=== PATIENT | female | born 1995 | race African-American/Black ===

== ENCOUNTER 2017-12-11 10:00 | Inpatient (IN) | payer OTHER ==
--- NOTE | 2017-12-10 20:44 | PDOC.LDHP ---
Labor and Delivery H&P Chief complaint: scheduled section HPI: 22 yo @ 39w0d by LMP c/w 12 week sono who presented for late transfer to . Pt has had benign anetpartum care besides anemia. Current gestational age (weeks): 39 Due date: 12/18/17 Dating criteria: last menstrual period Grav: 2 Para: 1 OB History Details: Term 2014 [id number] Current complications: none Abnormal US findings: No (however, anatomy sono report not available ) Past Medical History: Anemia, Asthma Current medications: none Previous surgical history: none Allergies/Adverse Reactions: Allergies Allergy/AdvReac Type Severity Reaction Status Date / Time No Known Allergies Allergy Verified 12/11/17 10:47 Social history: none - Physical Exam Vital signs reviewed and normal: yes General: NAD Heart: RRR Lungs: nonlabored breathing Abdomen: gravid Extremeties: no edema FHT: category 1 (130s, mod jose guadalupe, +accels, no decels) [place] contractions every: irritabilty - OB Labs Blood type: B RH: positive Antibody Screen: negative HIV: negative RPR: negative HEPSAg: negative 1 hour GCT: negative GBS: negative Urine drug screen: negative Rubella: immune Additional Labs: Quad screen negative - Assessment 39w0d IUP Breech presentation - Plan Plan: to OR for section, informed consent obtained, anesthesia consult for pain management -: Patient has been counseled on options of ECV vs PLTCS. All R/B/A/I for each reviewed. Pt desires PLTCS. TO OR for PLTCS.
[2017-12-11 10:58] VITALS: BMI 39.1
[2017-12-11] MEDS: Lactated Ringer's 1,000 ML IV SCH ×2 (11:03→22:41)
[2017-12-11] MEDS ORDERED: CEFAZOLIN/Water 2 GM/20 ML SYRINGE SLOW IVP SCH (11:06)
[2017-12-11] MEDS ORDERED: Bicitra 30 ML UDCUP PO SCH (11:06)
[2017-12-11] MEDS ORDERED: Acetaminophen 500 MG TAB PO PRN (11:06)
[2017-12-11] MEDS ORDERED: Ondansetron HCl/PF 4 MG/2 ML Vial IVP PRN ×3 (11:06→12:08)
[2017-12-11] MEDS ORDERED: Promethazine HCl 25 MG/ML VIAL IM PRN ×2 (11:06→12:08)
[2017-12-11 11:21] LABS: Hemoglobin 12.3 g/dL (12.0-16.0); Mean Corpuscular HGB CONC 33.9 g/dL (32.0-36.0); Mean Corpuscular Hemoglobin 31.2 pg (27.0-31.0); Mean Corpuscular Volume 92.1 fl (81.0-99.0); Mean Platelet Volume 9.3 fL (7.4-10.4); Platelet Count 170 thou/uL (130-400); RBC Distribution Width 12.7 % (11.5-14.5); Red Blood Cell (RBC) Count 3.95 mill/uL (4.20-5.40); White Blood Cell (WBC) Count 4.6 thou/uL (4.8-10.8)
--- NOTE | 2017-12-11 12:01 | CON ---
DATE OF CONSULTATION: 12/11/2017 HISTORY OF PRESENT ILLNESS: Ms. Ravi is a 22-year-old black G2, P1-0-0-1, currently at term, who Dr. Ferrari has asked for me to do a bedside ultrasound on. She is set to have a at noon and Dr. Ferrari is requesting information on presentation and placentation. On exam, her abdomen is soft, nontender and gravid consistent with a term . Bedside ultrasound reveals a naina breech presentation with the head in the patient's right upper quadrant. Adequate amniotic fluid is seen. I see no placenta across the lower uterine segment and although the placenta is difficult to see on bedside ultrasound, it appears that it is primarily posterior in its position. This information was conveyed to Dr. Ferrari by phone and the plan at this time is to proceed with section as planned. [place]
[2017-12-11] MEDS ORDERED: Eucerin (Mineral Oil/Petrolatum,White) 30 gm Jar TOP PRN (12:08)
[2017-12-11] MEDS ORDERED: Naloxone HCl 0.4 mg/ml Vial IV PRN (12:08)
[2017-12-11] MEDS ORDERED: Meperidine HCl/PF 25 MG/ML VIAL SLOW IVP PRN (12:08)
[2017-12-11] MEDS ORDERED: Naloxone HCl 0.4 mg/ml Vial IVP PRN ×2 (12:08)
[2017-12-11] MEDS ORDERED: HYDROmorphone 2 MG/ML VIAL SLOW IVP PRN (12:08)
[2017-12-11] MEDS ORDERED: Promethazine HCl 25 MG SUPP PR PRN (12:08)
[2017-12-11] MEDS ORDERED: Oxytocin 10 UNITS/ML VIAL ONE (12:12)
[2017-12-11] MEDS ORDERED: Lidocaine 1% PF 5 ML VIAL ONE (12:12)
[2017-12-11] MEDS ORDERED: Bupivacaine 0.75% W/DEXTROSE 8.25% 2 ML AMP ONE (12:12)
[2017-12-11] MEDS ORDERED: Morphine PF 1 MG/ML SYR ONE (12:12)
[2017-12-11] MEDS ORDERED: ePHEDrine/0.9% NaCl/PF SYRINGE 50 mg/10 ml ONE ×2 (12:12→16:14)
[2017-12-11] MEDS ORDERED: Ketorolac Tromethamine 30 MG/ML VIAL IVP SCH (12:15)
[2017-12-11] MEDS ORDERED: Communication Order-Pharmacy FS SCH (12:15)
--- NOTE | 2017-12-11 13:37 | PDOC.OPDEL ---
OB Operative/Delivery Note Delivery Dr/Surgeon: Татьяна Ferrari DO Assist: Coco Carrillo MD Pre-Delivery Diagnosis: scheduled section Procedure/Post Delivery Dx: primary low transverse CS Weeks gestation: 39 Anesthesia: spinal - Findings A Sex: male - 1 min: 8 - 5 min: 9 - Additional Findings/Plan Placenta delivered: manual removal findings: low transverse hysterotomy without extension, normal uterus, normal tubes, normal ovaries Estimated blood loss: 600 CC Compilations/Other Findings: Infant in naina breech presentation Terminal meconium Post delivery plan: routine recovery
[2017-12-11] MEDS ORDERED: LR / Pitocin 40 units/1000 ml 1,000 ML ONE (13:51)
--- NOTE | 2017-12-11 14:37 | OP ---
DATE OF PROCEDURE: 12/11/2017 PREOPERATIVE DIAGNOSES: 1. A 39-week 0 day intrauterine . 2. malpresentation in naina breech position. POSTOPERATIVE DIAGNOSES: 1. A 39-week 0 day intrauterine . 2. malpresentation in naina breech position. PROCEDURE: Primary low transverse section. SURGEON: Татьяна Ferrari D.O. LEAD RECREATION ASSISTANT: Jayleen Carrillo M.D. COMPLICATIONS: None. ESTIMATED BLOOD LOSS: 600 mL. IV FLUIDS: 1000 mL of crystalloid. FINDINGS: Normal appearing uterus, fallopian tubes and ovaries bilaterally. Terminal meconium noted. A viable male in naina breech presentation, Apgars 8 and 9. INDICATIONS FOR THE PROCEDURE: Ms. Gallito Ravi is a 22-year-old G2, P1 at 39 weeks and 0 days by LMP, consistent with a 12 week sonogram who was transferred to [facility] and with her first evaluation on 12/05/2017. The fetus was noted to be in naina breech presentation. The patient was counseled on option of external cephalic version versus primary delivery and elected to have a primary delivery. PROCEDURE IN DETAIL: The patient was brought to the operating room. Spinal anesthesia was placed and she was placed in supine position with a leftward tilt. A White catheter was placed. She was prepped and draped in sterile fashion. Ancef was given preoperatively for prophylaxis. An official timeout was performed. A Pfannenstiel incision skin incision was made using the scalpel and carried down to underlying fascial layer. The fascia was incised in the midline, extended bilaterally using Carvajal scissors. The superior aspect of the fascia was grasped with Richa clamp and dissected free from underlying rectus abdominis muscles. The same was performed to the inferior aspect of the fascial incision. The peritoneum was entered in bluntly. Peritoneal incision was extended using blunt and sharp dissection. An Musa O retractor was placed into the abdomen. A low transverse hysterotomy was made using the scalpel, this was extended using blunt dissection. The infant was delivered in naina breech presentation without difficulty. Infant's cord was clamped and cut. was handed to awaiting NICU team. Cord blood was obtained. The placenta was delivered manually intact. The uterus was cleared of all clot and debris. The hysterotomy was closed in a running locking fashion using #1 Monocryl. An imbrication layer was also performed. Hysterotomy site was hemostatic after closure. The pelvis was irrigated and cleared of all clot and debris. The adnexa was evaluated and was normal in appearance. The Musa O retractor was removed from the abdomen. The peritoneum was closed in a running fashion. The rectus abdominis muscles were evaluated hemostatic. The fascia was closed in a running fashion using 0 PDS. Subcutaneous layer was copiously irrigated and hemostatic with the use of the Bovie. The subcutaneous layer was closed using 3-0 Vicryl. The skin was closed using 4-0 Monocryl and Dermabond. There was a small skin tag and left aspect of the abdomen that was removed and the skin reapproximated using Dermabond. The patient tolerated the procedure well. There were no complications. All counts were correct x3. Mother and infant will be transferred to routine recovery. [facility] CENTERGus
[2017-12-11] MEDS ORDERED: diphenhydrAMINE 50 MG/ML VIAL ONE (15:19)
[2017-12-11] MEDS: diphenhydrAMINE 50 MG/ML VIAL IVP PRN ×2 (15:21→22:41)
[2017-12-11 15:40] LABS: Syphilis Antibody Nonreactive (Nonreactive); Syphilis Antibody Index 0.03 S/CO (<1.00 Non-Reactive)
[2017-12-11 15:41] LABS: HBSAg Index 0.21 S/CO (0-0.99); Hep B Surf Ag Non-Reactive S/CO (NonReactive)
[2017-12-11] MEDS ORDERED: Methylergonovine 0.2 MG/ML VIAL IM PRN (16:18)
[2017-12-11] MEDS ORDERED: Bisacodyl 10 MG SUPP PR PRN (16:18)
[2017-12-11] MEDS ORDERED: LR w/ Pitocin 40 units/1000 ML BAG IV SCH (16:18)
[2017-12-11] MEDS: Ketorolac Tromethamine 30 MG/ML VIAL IVP PRN ×2 (16:24→22:41)
[2017-12-11] MEDS ORDERED: Misoprostol 200 MCG TAB PR SCH (17:00)
[2017-12-11] MEDS ORDERED: Morphine 5 MG/ML SYRINGE SLOW IVP PRN (17:12)
[2017-12-11] MEDS: Docusate Calcium (SURFAK) 240 MG CAP PO SCH (22:42)
[2017-12-11] MEDS: Ferrous Sulfate 325 MG TAB PO SCH (22:42)
[2017-12-12] MEDS ORDERED: HYDROcodone/Acetaminophen 5/325 mg Tablet PO PRN ×2 (00:15)
[2017-12-12] MEDS: Ketorolac Tromethamine 30 MG/ML VIAL IVP PRN (05:40)
[2017-12-12 06:28] LABS: #Lymphocytes 0.9 thou/uL (1.20-3.40); #Monocytes 0.7 thou/uL (0.11-0.59); #Neutrophils 4.9 thou/uL (1.40-6.50); %Basophils 0.1 % (0.0-1.0); %Eosinophils 0.7 % (0.0-10.0); %Lymphocytes 13.3 % (21.0-51.0); %Monocytes 11.1 % (0.0-10.0); %Neutrophils 74.8 % (42.0-75.0); Hemoglobin 11.4 g/dL (12.0-16.0); Mean Corpuscular HGB CONC 34.5 g/dL (32.0-36.0); Mean Corpuscular Hemoglobin 31.2 pg (27.0-31.0); Mean Corpuscular Volume 90.3 fl (81.0-99.0); Platelet Count 129 thou/uL (130-400); RBC Distribution Width 12.6 % (11.5-14.5); Red Blood Cell (RBC) Count 3.66 mill/uL (4.20-5.40); White Blood Cell (WBC) Count 6.6 thou/uL (4.8-10.8)
[2017-12-12] MEDS: Ferrous Sulfate 325 MG TAB PO SCH (07:33)
--- NOTE | 2017-12-12 08:07 | PDOC.PP ---
Post Progress Note Post Day #: 1 Subjective: Minimal lochia, pain controlled. White recently removed. Formula feeding. PO intake tolerated: yes Flatus: no Ambulation: yes Vital Signs (12 hours) Temp Pulse Resp BP 12/12/17 06:00 98.3 F 68 18 110/56 L 12/12/17 04:00 98.5 F 68 18 12/12/17 00:00 98.0 F 65 18 101/51 L Weight Weight 207 lb - Physical Examination General: NAD Cardiovascular: RRR Respiratory: non-labored breathing Abdominal: + bowel sounds, no distention, appropriately TTP Fundus firm & at: below umbilicus Extremities: negative homans (B) Skin: CS incision dry & intact Neurological: no gross focal deficits Psychiatric: A&Ox3 Result Diagrams: 12/12/17 05:45 Additional Labs: Post Labs Blood Type B POSITIVE 12/11/17 11:03 Hep Bs Antigen Non-Reactive S/CO (NonReactive) 12/11/17 11:03 (1) delivery delivered Code(s): O82 - ENCOUNTER FOR DELIVERY WITHOUT INDICATION Status: Acute (2) 39 weeks gestation of Code(s): Z3A.39 - 39 WEEKS GESTATION OF Status: Resolved (3) Breech presentation Code(s): O32.1XX0 - MATERNAL CARE FOR BREECH PRESENTATION, UNSP Status: Resolved - Assessment/Plan PPD1 VSSAF Routine post op/ recovery. PRN pain meds. Plan for d/c 1-2 days.
[2017-12-12] MEDS ORDERED: Adacel (T-DAP) 0.5 ML VIAL IM ONE (09:00)
[2017-12-12] MEDS: Lactated Ringer's 1,000 ML IV SCH ×2 (09:08→22:24)
[2017-12-12] MEDS: Docusate Calcium (SURFAK) 240 MG CAP PO SCH ×2 (09:09→22:05)
[2017-12-12] MEDS: Prenatal Vitamin 1 TAB PO SCH (09:09)
[2017-12-12] MEDS: Ibuprofen 800 MG TAB PO SCH ×2 (14:37→22:04)
[2017-12-12] MEDS: Simethicone Chewable 80 MG TAB PO PRN (22:24)
[2017-12-13] MEDS: Ibuprofen 800 MG TAB PO SCH ×3 (06:48→21:44)
[2017-12-13] MEDS: Ferrous Sulfate 325 MG TAB PO SCH ×3 (06:49→22:59)
[2017-12-13] MEDS: Lactated Ringer's 1,000 ML IV SCH ×3 (06:49→22:59)
[2017-12-13] MEDS ORDERED: Bisacodyl 10 MG SUPP PR PRN (07:50)
[2017-12-13] MEDS ORDERED: Fleet Enema 133 ML BOT PR SCH (08:00)
--- NOTE | 2017-12-13 08:39 | PRG ---
DATE OF SERVICE: 12/13/2017 PRIMARY OB: Dr. Ferrari. SUBJECTIVE: The patient is postop day #02 status post a primary for breech presentation. She reports that she is doing well. She is tolerating p.o., voiding on her own, having decreased loc hia and good pain control. She does report, however, she has a strong desire to have a bowel movemen t, but it has been unable to and feels quite bloated and has requesting a suppository or enema. PHYSICAL EXAMINATION: VITAL SIGNS: Today, blood pressure is 121/58, temperature 98.4, pulse of 62, respiratory rate of 18. GENERAL: She appears to be in no acute distress. She is alert and oriented, cooperative and pleasan t to interact with. HEENT: Head is normocephalic, atraumatic. ABDOMEN: Soft, somewhat bloated. Incision is clean, dry, and intact. Fundus is firm. EXTREMITIES: Symmetrical. ASSESSMENT AND PLAN: The patient is a 22-year-old female postop day #02 status post a primary C-sect ion for breech presentation requesting suppository. We will continue her postoperative care here. I have encouraged her to continue with ambulation and have ordered her suppository to assist with stephanie l movement.
[2017-12-13] MEDS: Prenatal Vitamin 1 TAB PO SCH (08:53)
[2017-12-13] MEDS: Docusate Calcium (SURFAK) 240 MG CAP PO SCH ×2 (08:54→21:44)
[2017-12-13 21:27] VITALS: BP 116/69; TEMP 98.9
[2017-12-13] MEDS: Simethicone Chewable 80 MG TAB PO PRN (21:44)
[2017-12-14] MEDS: Ibuprofen 800 MG TAB PO SCH (05:59)
[2017-12-14] MEDS: Lactated Ringer's 1,000 ML IV SCH (06:07)
--- NOTE | 2017-12-14 06:47 | PDOC.PP ---
Post Progress Note Post Day #: POD3# Subjective: Doing well, wants to go home. PO intake tolerated: yes Flatus: yes Ambulation: yes Vital Signs (12 hours) Temp Pulse Resp BP BP 12/13/17 19:30 98.9 F 73 20 116/69 116/69 Weight Weight 93.894 kg - Physical Examination General: NAD Respiratory: non-labored breathing Abdominal: no distention Extremities: negative homans (B) Skin: CS incision dry & intact Psychiatric: normal affect Result Diagrams: 12/12/17 05:45 Additional Labs: Post Labs Blood Type B POSITIVE 12/11/17 11:03 Hep Bs Antigen Non-Reactive S/CO (NonReactive) 12/11/17 11:03 - Assessment/Plan DC home. Precautions. RTC with Dr. Walsh in 2 weeks.
[2017-12-14] MEDS: Prenatal Vitamin 1 TAB PO SCH (09:56)
[2017-12-14] MEDS: Ferrous Sulfate 325 MG TAB PO SCH (09:56)
[2017-12-14] MEDS: Docusate Calcium (SURFAK) 240 MG CAP PO SCH (09:56)
== END 2017-12-14 11:15 | disposition home or self-care (01) | DRG 766 ==
LOC: L&D 10:00 → 3SW 15:49
PROVIDERS: ADMIT Obstetrics & Gynecology; ATTEND Obstetrics & Gynecology
PROC: 10D00Z1 Extraction of Products of Conception, Low, Open Approach (ICD-10-PCS; principal; 2017-12-11)
DX: O32.1XX0 Maternal care for breech presentation, not applicable or unspecified (principal); Z37.0 Single live birth; Z3A.39 39 weeks gestation of pregnancy
CPT/HCPCS: 36415; 51702; 76815; 85025; 85027; 86780; 86850; 86900; 86901; 87340; J2270; J1200; J1885; J2001; J2274; J2590; J3490

== ENCOUNTER 2020-08-25 03:29 | Emergency (ER) | payer BC, OTHER ==
[2020-08-25] MEDS ORDERED: Ketorolac Tromethamine 30 MG/ML VIAL ONE (03:53)
[2020-08-25 04:31] LABS: Bacteria/HPF None Seen HPF (None Seen); Bilirubin Negative (Negative); Blood, Urine Trace (Negative); Clarity Clear (Clear); Glucose, Urine (Dipstick) Normal (Negative); Ketone, Urine Negative (Negative); Leukocyte 250 Leu/uL (Negative); Nitrite Negative (Negative); Protein, Urine (Dipstick) 20 mg/dL (Neg-Trace); Specific Gravity, Urine 1.023 (1.002-1.036); pH, Urine 6.5 (5.0-9.0)
[2020-08-25 04:32] LABS: Pregnancy Test - Urine (BHCG) Negative (Negative); Pregu Control Background? CLEAR/WHITE (CLR/WHITE); Pregu Control Bar Appear? YES (CONTROL BAR); Specific Gravity 1.021 (1.002-1.036)
[2020-08-25] MEDS ORDERED: HYDROcodone/Acetaminophen 5/325 mg Tablet ONE (04:32)
[2020-08-25 04:34] LABS: #Lymphocytes 0.7 thou/uL (1.20-3.40); #Monocytes 0.8 thou/uL (0.11-0.59); #Neutrophils 5.6 thou/uL (1.40-6.50); %Basophils 0.4 % (0.0-1.0); %Eosinophils 0.5 % (0.0-10.0); %Lymphocytes 9.1 % (21.0-51.0); %Monocytes 11.4 % (0.0-10.0); %Neutrophils 78.6 % (42.0-75.0); Hemoglobin 12.1 g/dL (12.0-16.0); Mean Corpuscular HGB CONC 33.4 g/dL (32.0-36.0); Mean Corpuscular Hemoglobin 31.2 pg (27.0-31.0); Mean Corpuscular Volume 93.4 fL (78.0-98.0); Mean Platelet Volume 8.3 fL (7.4-10.4); Platelet Count 315 thou/uL (130-400); RBC Distribution Width 11.4 % (11.5-14.5); White Blood Cell (WBC) Count 7.2 thou/uL (4.8-10.8)
[2020-08-25 05:00] LABS: ALT (SGPT) 13 U/L (8-55); AST (SGOT) 19 U/L (5-34); Albumin 3.7 g/dL (3.5-5.0); Alkaline Phosphatase 57 U/L (40-110); Anion Gap 15 mmol/L (10-20); BUN (Urea Nitrogen) 12 mg/dL (7.0-18.7); Bilirubin, Total 0.2 mg/dL (0.2-1.2); Calc. Creatinine Clearance 0 mL/min (70-130); Calcium 8.5 mg/dL (7.8-10.44); Carbon Dioxide 25 mmol/L (22-29); Chloride 102 mmol/L (98-107); Globulin 3.5 g/dL (2.4-3.5); Glucose 94 mg/dL (70-105); Lipase 27 U/L (8-78); Potassium 4.8 mmol/L (3.5-5.1); Protein, Total 7.2 g/dL (6.0-8.3); Sodium 137 mmol/L (136-145)
[2020-08-25] MEDS ORDERED: Azithromycin 250 MG TAB ONE (05:45)
[2020-08-25] MEDS ORDERED: cefTRIAXone\\ROCEPHIN 250 MG VIAL ONE (05:45)
[2020-08-25] MEDS ORDERED: Lidocaine 1% PF 5 ML VIAL ONE (05:46)
--- NOTE | 2020-08-25 08:21 | CT ---
CT OF THE ABDOMEN AND PELVIS WITHOUT IV CONTRAST: Date: 08/25/2020 INDICATION: History of suprapubic and left lower quadrant abdominal pain. COMPARISON: Prior CT abdomen and pelvis with contrast dated 08/22/2013. FINDINGS: Lung bases are clear. The unopacified liver, pancreas, adrenal glands, and spleen appear within normal limits. Unopacified kidneys demonstrate no definite renal or ureteral calculus. There are a few mildly prominent but nonpathologically enlarged lymph nodes within the left periaorti c region measuring up to 7.0 mm. There is inflammatory stranding involving the lower mesentery with mild free fluid in the pelvis. The re is a 4.5 cm density in the region of the left adnexa. There is moderate free fluid in the pelvis. Unopacified colon and small bowel appear within normal limits. The appendix is not definitely seen. No free air is evident. No definite acute osseous abnormality is evident. IMPRESSION: 1. 4.5 cm density in the region of the left adnexa may reflect adnexal mass or complex cyst. There i s inflammatory stranding seen involving the lower abdomen and pelvis with moderate free fluid. Recomm end correlation with clinical examination for any symptoms and signs of pelvic inflammatory disease. A pelvic ultrasound may be helpful for improved characterization. 2. Nonvisualization of appendix. 3. No renal or ureteral calculus. POS: BH
[2020-08-29 00:25] LABS: Chlamydia by PCR DETECTED (NotDetected); GC by PCR Not Detected (NotDetected)
== END 2020-08-25 06:30 | disposition home or self-care (01) ==
LOC: ERS 03:29
DX: R10.2 Pelvic and perineal pain (principal); F17.290 Nicotine dependence, other tobacco product, uncomplicated
CPT/HCPCS: 36415; 74176; 80053; 81003; 81015; 81025; 83690; 85025; 87480; 87491; 87510; 87591; 87660; 96372; J0696; J1885

== ENCOUNTER 2023-07-31 09:03 | Emergency (ER) | payer OTHER, SELFPAY ==
[2023-07-31 09:33] LABS: BHCG - Serum POSITIVE (NEGATIVE); Pregs Control Background? CLEAR/WHITE (CLR/WHITE); Pregs Control Bar Appear? YES (CONTROL BAR)
[2023-07-31 09:49] LABS: ALT (SGPT) 11 U/L (8-55); AST (SGOT) 17 U/L (5-34); Albumin 4.2 g/dL (3.5-5.0); Alkaline Phosphatase 42 U/L (40-110); Anion Gap 11 mmol/L (10-20); BUN (Urea Nitrogen) 5 mg/dL (7.0-18.7); Bilirubin, Total 0.6 mg/dL (0.2-1.2); Calc. Creatinine Clearance 0 mL/min (70-130); Calcium 9.2 mg/dL (7.8-10.44); Carbon Dioxide 24 mmol/L (22-29); Chloride 102 mmol/L (98-107); Estimated GFR 122; Globulin 3.4 g/dL (2.4-3.5); Glucose 85 mg/dL (70-105); Lipase 20 U/L (8-78); Potassium 3.7 mmol/L (3.5-5.1); Protein, Total 7.6 g/dL (6.0-8.3); Sodium 133 mmol/L (136-145)
[2023-07-31 10:09] LABS: Bacteria/HPF None Seen HPF (None Seen); Bilirubin Negative (Negative); Blood, Urine Trace (Negative); CAUTI Indications for Culture Pelvic or flank pain; Clarity Clear (Clear); Glucose, Urine (Dipstick) Normal (Negative); Ketone, Urine Negative (Negative); Leukocyte Negative Leu/uL (Negative); Nitrite Negative (Negative); Protein, Urine (Dipstick) Negative (Neg-Trace); RBC/HPF 0-3 HPF (0-3); Specific Gravity, Urine 1.015 (1.002-1.036); Squamous Epithelial 0-3 HPF (0-3); Urobilinogen Normal mg/dL (Less than 2); WBC/HPF 0-3 HPF (0-3); pH, Urine 6.5 (5.0-9.0)
[2023-07-31 10:21] LABS: Urine Culture Reflex No No
[2023-07-31] MEDS ORDERED: Ondansetron ODT 4 MG TAB ONE (10:56)
[2023-07-31 13:00] LABS: #Monocytes 0.5 thou/uL (0.11-0.59); #Neutrophils 3.6 thou/uL (1.40-6.50); %Basophils 0.4 % (0.0-1.0); %Eosinophils 0.8 % (0.0-10.0); %Lymphocytes 20.5 % (21.0-51.0); %Monocytes 9.8 % (0.0-10.0); %Neutrophils 68.3 % (42.0-75.0); Hematocrit 38.4 % (36.0-47.0); Hemoglobin 12.9 g/dL (12.0-16.0); Mean Corpuscular HGB CONC 33.6 g/dL (32.0-36.0); Mean Corpuscular Hemoglobin 30.4 pg (27.0-31.0); Mean Corpuscular Volume 90.6 fl (78.0-98.0); Mean Platelet Volume 11.3 fL (7.4-10.4); Platelet Count 257 10x3/uL (130-400); RBC Distribution Width 13.7 % (11.5-14.5); Red Blood Cell (RBC) Count 4.24 mill/uL (4.20-5.40); White Blood Cell (WBC) Count 5.3 10x3/uL (4.8-10.8)
== END 2023-07-31 13:45 | disposition home or self-care (01) ==
LOC: ERS 09:03
DX: O99.891 Other specified diseases and conditions complicating pregnancy (principal); R10.13 Epigastric pain; R11.0 Nausea; O99.331 Smoking (tobacco) complicating pregnancy, first trimester; F17.290 Nicotine dependence, other tobacco product, uncomplicated; Z3A.01 Less than 8 weeks gestation of pregnancy
CPT/HCPCS: 36415; 76705; 76801; 80053; 81001; 83690; 84702; 84703; 85025; Q0162